=== PATIENT | female | born 1980 | race Caucasian/White ===

== ENCOUNTER 2021-02-02 04:08 | Emergency (ER) | payer OTHER ==
[~2021-02-02] VITALS: Ht 170.2 cm; Wt 120.2 kg
[2021-02-02] MEDS ORDERED: LOSARTAN-HCTZ1 EACH (04:23)
[2021-02-02] MEDS ORDERED: TENORMIN100 M1 (04:24)
[2021-02-02] MEDS ORDERED: CARAFATE1 GM PO (06:58)
[2021-02-02] MEDS ORDERED: KETO10TA2 PO (06:58)
[2021-02-02] MEDS ORDERED: PEPCID AC20 MG PO (06:58)
== END 2021-02-02 07:14 | disposition home or self-care (01) ==
LOC: ER 04:08
DX: N83.292 Other ovarian cyst, left side (principal)
CPT/HCPCS: 74177; Q9965

== ENCOUNTER 2021-08-15 23:40 | Emergency (ER) | payer OTHER ==
[~2021-08-15] VITALS: Ht 170.2 cm; Wt 122.5 kg
[~2021-08-15 23:40] MED LIST: CARAFATE1 GM PO; KETO10TA2 PO; LOSARTAN-HCTZ1 EACH; PEPCID AC20 MG PO; TENORMIN100 M1
[2021-08-16] MEDS ORDERED: PEPCID AC20 MG PO (04:55)
[2021-08-16] MEDS ORDERED: INTESTINEX680 M1 PO (04:55)
[2021-08-16] MEDS ORDERED: LEVSIN0.125 MG PO (04:55)
== END 2021-08-16 05:21 | disposition home or self-care (01) ==
LOC: ER 23:40
DX: R10.9 Unspecified abdominal pain (principal); R73.9 Hyperglycemia, unspecified; R19.7 Diarrhea, unspecified

== ENCOUNTER 2023-06-29 | Emergency (ER) | payer OTHER ==
[~2023-06-29] VITALS: Ht 170.2 cm; Wt 120.2 kg
[~2023-06-29] MED LIST changes: +INTESTINEX680 M1 PO; +LEVSIN0.125 MG PO
== END 2023-06-29 05:16 | disposition home or self-care (01) ==
LOC: ER
DX: K29.70 Gastritis, unspecified, without bleeding (principal); K21.9 Gastro-esophageal reflux disease without esophagitis; K44.9 Diaphragmatic hernia without obstruction or gangrene

== ENCOUNTER 2023-09-13 06:04 | Day surgery (SDC) | payer OTHER ==
[2023-09-09 10:46] LABS: URINE APPEARANCE Clear; URINE BILIRRUBIN Negative (NEGATIVE); URINE BLOOD Negative; URINE COLOR Yellow; URINE GLUCOSE Negative (NEGATIVE); URINE LEUKOCYTE Negative; URINE NITRATE Negative; URINE PROTEIN Negative (NEGATIVE); URINE UROBILINOGEN 0.2 E.U./dl
[2023-09-09 10:49] LABS: URINE BACTERIA 133.5 uL (0.0-1933); URINE EPITHELIAL CELLS 7.8 uL (0.0-38.8); URINE RBC 32.3 uL (0.0-20.8)
[2023-09-09 11:20] LABS: URINE WBC 0.6 uL (0.0-23.2)
[2023-09-09 11:21] LABS: HEMATOCRIT 38.2 % (36.0-45.00); HEMOGLOBIN 12.8 g/dL (12.0-15.00); MEAN CELL VOLUME 78.2 fL (80.00-100.00); MEAN CORPUSCULAR HEMOGLOBIN 26.1 pg (27.00-32.0); MEAN CORPUSCULAR HGB CONC 33.4 g/dl (32.0-36.0); PLATELET COUNT 182 K/uL (150-450); RED BLOOD COUNT 4.89 M/uL (4.00-6.00); RED CELL DISTRIBUTION WIDTH 15.2 % (11.5-14.5)
[2023-09-09 11:30] LABS: ALBUMIN 3.5 gm/dL (3.4-5.0); BILIRUBIN TOTAL 0.44 mg/dL (0.3-1.2); CREATININE SERUM 0.74 mg/dL (0.55-1.02); GFR 84.87; GLOBULINA 3.9 G/DL (2.4-3.5); INR 0.95; PARTIAL THROMBOPLASTIN TIME 26.2 SECONDS (22.0-34.0); POTASSIUM 3.6 mEq/L (3.5-5.1); TOTAL PROTEIN 7.4 gm/dL (6.4-8.2)
[~2023-09-13] VITALS: Ht 170.2 cm; Wt 117.9 kg
[2023-09-13] MEDS ORDERED: CEFAZOLIN SODIUM 1,000 MG VIAL ONE (07:12)
[2023-09-13] MEDS ORDERED: HEMOSTATIC MATRIX WITH THROMBIN KIT TOP ONE ×2 (11:55→12:15)
[2023-09-13] MEDS ORDERED: HEMOSTATIC MATRIX 1 KIT KIT TOP ONE (11:55)
[2023-09-13] MEDS ORDERED: SURGIFLO APPLICATOR 1 EACH APPL TOP ONE (11:55)
[2023-09-13] MEDS ORDERED: CEFAZOLIN SODIUM 1,000 MG VIAL IV ONE (12:00)
== END 2023-09-13 14:45 | disposition home or self-care (01) ==
LOC: CIR.AMB 06:04
PROVIDERS: ATTEND Surgery
DX: K81.1 Chronic cholecystitis (principal)